=== PATIENT | female | born 1955 | race Caucasian/White ===

== ENCOUNTER 2017-10-29 20:43 | Emergency (ER) | payer MEDICAID, OTHER ==
[~2017-10-29] VITALS: Ht 162.6 cm; Wt 63.0 kg
[2017-10-29 20:46] VITALS: BP 125/85
== END 2017-10-29 23:34 | disposition home or self-care (01) ==
LOC: ER 20:47
DX: F41.1 Generalized anxiety disorder (principal); J84.10 Pulmonary fibrosis, unspecified; Z99.81 Dependence on supplemental oxygen
CPT/HCPCS: 93005; 99284

== ENCOUNTER 2019-02-01 10:12 | Inpatient (IN) | payer MEDICARE, MEDICAID ==
[~2019-02-01] VITALS: Ht 152.4 cm; Wt 64.0 kg
[~2019-02-01 10:12] MED LIST: ALBU18HF2 IH; ALBU6.7H9 INH; ASPI-1158 PO; ATOR-2 PO; CLOP75TA4 PO
[2019-02-01 10:48] LABS: BASOPHILS % 0.4 % (0.0-2.0); EOSINOPHILS % 4.6 % (0.0-5.0); HEMATOCRIT. 44.5 % (36.0-48.0); HEMOGLOBIN. 14.7 g/dL (12.0-16.0); LYMPHOCYTES % 21.7 % (20.0-50.0); MEAN CORPUSCULAR HEMOGLOBIN 30.1 pg (28.0-32.0); MEAN CORPUSCULAR VOLUME 91.2 fL (81.0-99.0); MONOCYTES % 9.5 % (2.0-8.0); NEUTROPHILS % 63.8 % (40.0-76.0); PLATELET 260 x1000/uL (130-400); RED BLOOD CELL COUNT 4.88 mill/uL (4.2-5.4); RED CELL DISTRIBUTION WIDTH 14.3 % (11.6-14.6)
[2019-02-01 10:50] LABS: CHLORIDE 108 mEq/L (98-107)
[2019-02-01 14:53] LABS: BG BASE EXCESS -0.2 mmol/L (-2.0-2.0); BG BILEVEL POS AIRWAY PRESSURE 15/5; BG CARBOXYHEMOGLOBIN 0.2 % (0.5-1.5); BG DEOXYHEMOGLOBIN 0.3 % (0.0-5.0); BG FRACTION INSPIRED OXYGEN 100; BG HCO3 ACT 24.7 mmol/L (22.0-26.0); BG METHEMOGLOBIN 0.2 % (0.0-1.5); BG OXYGEN SATURATION 99.7 % (92.0-98.5); BG OXYHEMOGLOBIN 99.3 % (94.0-97.0); BG PCO2 41.4 mmHg (35.0-45.0); BG PH 7.394 (7.350-7.450); BG PO2 519.1 mmHg (75.0-100.0); BG SAMPLE SITE RIGHT RADIAL; BG TOTAL HEMOGLOBIN 16.4 g/dL (12.0-18.0); BG VENT MODE MASK - BIPAP; BG VENT RATE 16 set
[2019-02-01] MEDS ORDERED: DOCUSATE SODIUM 100MG CAPSULE PO PRN (17:45)
[2019-02-01] MEDS ORDERED: IPRATROPIUM/ALBUTEROL 0.5-3(2.5)MG/3ML NEB NEB PRN (17:45)
[2019-02-01] MEDS ORDERED: ZOLPIDEM TARTRATE 5MG TABLET PO PRN (17:45)
[2019-02-01] MEDS ORDERED: LORAZEPAM 0.5MG TABLET PO PRN (17:45)
[2019-02-01] MEDS ORDERED: DIPHENHYDRAMINE 50MG/ML VIAL IV PRN (17:45)
[2019-02-01] MEDS ORDERED: CLONIDINE 0.1MG TABLET PO PRN (17:45)
[2019-02-01] MEDS ORDERED: MAGNESIUM/ALUMINUM HYDROXIDE/SIMETHICONE 30ML UDC PO PRN (17:45)
[2019-02-01] MEDS ORDERED: NITROGLYCERIN 0.4MG TABLET SL SL PRN (17:45)
[2019-02-01] MEDS ORDERED: GUAIFENESIN 200MG/10ML SUGAR FREE UDC PO PRN (17:45)
[2019-02-01] MEDS ORDERED: ONDANSETRON HCL 4MG/2ML INJ IV PRN (17:45)
[2019-02-01] MEDS ORDERED: ACETAMINOPHEN 325MG TABLET PO PRN (17:45)
[2019-02-01 17:55] VITALS: BP 99/77
[2019-02-01 18:00] VITALS: BP 103/60
[2019-02-01] MEDS ORDERED: TRAMADOL 50MG TABLET PO PRN (18:00)
[2019-02-01] MEDS: ASPIRIN 81MG EC TABLET PO SCH (18:35)
[2019-02-01 20:00] VITALS: BP 94/63
[2019-02-01] MEDS: LEVOFLOXACIN 500MG PREMIX 100 ML IV SCH (20:55)
[2019-02-01] MEDS: GUAIFENESIN 600MG ER TABLET PO SCH (20:56)
[2019-02-01] MEDS: FAMOTIDINE 20MG TABLET PO SCH (20:56)
[2019-02-01] MEDS: ATORVASTATIN CALCIUM 40MG TABLET PO SCH (21:15)
[2019-02-01] MEDS: ENOXAPARIN 40MG/0.4ML SYR SUBCUT SCH (21:15)
[2019-02-01 22:00] VITALS: BP 97/61
[2019-02-01] MEDS: METHYLPREDNISOLONE SOD SUCC 125 MG/2 ML VIAL IV SCH (23:02)
[2019-02-02] VITALS (12 sets, daily range): BP systolic 63–121; BP diastolic 48–81
[2019-02-02] MEDS: IPRATROPIUM/ALBUTEROL 0.5-3(2.5)MG/3ML NEB HHN SCH ×6 (00:33→20:51)
[2019-02-02 01:30] LABS: CREATINE KINASE 40 IU/L (26-192)
[2019-02-02 01:31] LABS: CREATINE KINASE MB FRACTION < 1.0 ng/mL (0.5-3.6)
[2019-02-02] MEDS: METHYLPREDNISOLONE SOD SUCC 125 MG/2 ML VIAL IV SCH ×3 (05:36→22:40)
[2019-02-02] MEDS: GUAIFENESIN 600MG ER TABLET PO SCH ×2 (09:37→22:39)
[2019-02-02] MEDS: FAMOTIDINE 20MG TABLET PO SCH ×2 (09:37→22:39)
[2019-02-02] MEDS: CLOPIDOGREL 75MG TABLET PO SCH (09:38)
[2019-02-02] MEDS: ASPIRIN 81MG EC TABLET PO SCH (09:38)
[2019-02-02 11:20] LABS: BG BASE EXCESS -3.9 mmol/L (-2.0-2.0); BG CARBOXYHEMOGLOBIN 0.6 % (0.5-1.5); BG DEOXYHEMOGLOBIN 3.4 % (0.0-5.0); BG FRACTION INSPIRED OXYGEN 36; BG HCO3 ACT 19.8 mmol/L (22.0-26.0); BG METHEMOGLOBIN 0.3 % (0.0-1.5); BG OXYGEN SATURATION 96.6 % (92.0-98.5); BG OXYHEMOGLOBIN 95.7 % (94.0-97.0); BG PCO2 32.1 mmHg (35.0-45.0); BG PH 7.407 (7.350-7.450); BG PO2 86.5 mmHg (75.0-100.0); BG SAMPLE SITE RIGHT RADIAL; BG TOTAL HEMOGLOBIN 14.3 g/dL (12.0-18.0); BG VENT MODE NASAL CANNULA
[2019-02-02 12:22] LABS: CHLORIDE 107 mEq/L (98-107)
[2019-02-02 12:31] LABS: HDL CHOLESTEROL 42 mg/dL (40-59)
[2019-02-02 12:37] LABS: CREATINE KINASE MB FRACTION < 1.0 ng/mL (0.5-3.6)
[2019-02-02 12:38] LABS: CREATINE KINASE 35 IU/L (26-192); LDL CHOLESTEROL 74 mg/dL (5-100)
[2019-02-02] MEDS ORDERED: LIDOCAINE HCL/PF 1% 2ML VIAL ONE (13:43)
[2019-02-02] MEDS: ATORVASTATIN CALCIUM 40MG TABLET PO SCH (22:39)
[2019-02-02] MEDS: LEVOFLOXACIN 500MG PREMIX 100 ML IV SCH (22:39)
[2019-02-02] MEDS: ENOXAPARIN 40MG/0.4ML SYR SUBCUT SCH (22:40)
[2019-02-03] VITALS (11 sets, daily range): BP systolic 94–127; BP diastolic 55–74
[2019-02-03] MEDS: IPRATROPIUM/ALBUTEROL 0.5-3(2.5)MG/3ML NEB HHN SCH ×7 (00:40→23:59)
[2019-02-03] MEDS: METHYLPREDNISOLONE SOD SUCC 125 MG/2 ML VIAL IV SCH ×3 (05:58→21:00)
[2019-02-03] MEDS: FAMOTIDINE 20MG TABLET PO SCH ×2 (09:30→21:00)
[2019-02-03] MEDS: GUAIFENESIN 600MG ER TABLET PO SCH ×2 (09:30→21:00)
[2019-02-03] MEDS: ASPIRIN 81MG EC TABLET PO SCH (09:31)
[2019-02-03] MEDS: CLOPIDOGREL 75MG TABLET PO SCH (09:31)
[2019-02-03 14:14] LABS: BASOPHILS % 0.1 % (0.0-2.0); HEMATOCRIT. 39.7 % (36.0-48.0); HEMOGLOBIN. 13.3 g/dL (12.0-16.0); LYMPHOCYTES % 8.2 % (20.0-50.0); MEAN CORPUSCULAR HEMOGLOBIN 30.5 pg (28.0-32.0); MEAN CORPUSCULAR VOLUME 90.8 fL (81.0-99.0); MEAN PLATELET VOLUME 8.3 fl (7.4-10.4); MONOCYTES % 5.2 % (2.0-8.0); NEUTROPHILS % 86.5 % (40.0-76.0); PLATELET 263 x1000/uL (130-400); RED BLOOD CELL COUNT 4.37 mill/uL (4.2-5.4); RED CELL DISTRIBUTION WIDTH 14.3 % (11.6-14.6)
[2019-02-03 14:25] LABS: CHLORIDE 107 mEq/L (98-107)
[2019-02-03] MEDS: ATORVASTATIN CALCIUM 40MG TABLET PO SCH (21:00)
[2019-02-03] MEDS: ENOXAPARIN 40MG/0.4ML SYR SUBCUT SCH (21:00)
[2019-02-03] MEDS: LEVOFLOXACIN 500MG PREMIX 100 ML IV SCH (21:00)
[2019-02-04] VITALS: BP 108/70
[2019-02-04 03:43] VITALS: BP 114/61
[2019-02-04] MEDS: IPRATROPIUM/ALBUTEROL 0.5-3(2.5)MG/3ML NEB HHN SCH (04:29)
[2019-02-04] MEDS: METHYLPREDNISOLONE SOD SUCC 125 MG/2 ML VIAL IV SCH (05:25)
[2019-02-04 08:00] VITALS: BP 97/58
[2019-02-04] MEDS: GUAIFENESIN 600MG ER TABLET PO SCH (09:12)
[2019-02-04] MEDS: FAMOTIDINE 20MG TABLET PO SCH (09:12)
[2019-02-04] MEDS: CLOPIDOGREL 75MG TABLET PO SCH (09:12)
[2019-02-04] MEDS: ASPIRIN 81MG EC TABLET PO SCH (09:12)
[2019-02-04 11:30] VITALS: BP 115/54
[2019-02-04] MEDS ORDERED: P20 PO (12:48)
[2019-02-04] MEDS ORDERED: LEVO500T2 PO (12:50)
[2019-02-04] MEDS ORDERED: GUAI600T26 PO (12:57)
[2019-02-04 12:59] VITALS: BP 110/78
== END 2019-02-04 14:56 | disposition home or self-care (01) | DRG 189 ==
LOC: ER 10:12 → 5EST 12:45 → ENRESERV 15:26
PROVIDERS: ADMIT Internal Medicine; ATTEND Internal Medicine
PROC: 5A09357 Assistance with Respiratory Ventilation, Less than 24 Consecutive Hours, Continuous Positive Airway Pressure (ICD-10-PCS; principal; 2019-02-01)
DX: J96.00 Acute respiratory failure, unspecified whether with hypoxia or hypercapnia (principal); J44.1 Chronic obstructive pulmonary disease with (acute) exacerbation; E78.00 Pure hypercholesterolemia, unspecified; I11.0 Hypertensive heart disease with heart failure; I25.10 Atherosclerotic heart disease of native coronary artery without angina pectoris; I27.20 Pulmonary hypertension, unspecified; I50.9 Heart failure, unspecified; Z79.02 Long term (current) use of antithrombotics/antiplatelets; Z87.891 Personal history of nicotine dependence; Z95.5 Presence of coronary angioplasty implant and graft; Z99.81 Dependence on supplemental oxygen
CPT/HCPCS: 36415; 36600; 71045; 80048; 80061; 82375; 82550; 82553; 82805; 83036; 83880; 84484; 93005; 93306; 93970; 94660; 99291; J1650; J1956; J2930; J3490; J7620

== ENCOUNTER 2019-06-10 12:07 | Emergency (ER) | payer MEDICARE, MEDICAID ==
[~2019-06-10] VITALS: Ht 162.6 cm; Wt 60.0 kg
[~2019-06-10 12:07] MED LIST changes: +ASPI-1497 PO; +CLOP75TA15 PO; +FLUT1DIS2 INH; +FLUT1DIS3 INH; +GUAI600T26 PO; +LEVO500T2 PO; +P20 PO; +P50 PO; +PRED10TA PO; +PRED10TA23 PO; +PRED5SOL2 PO; +TOPUD MT
[2019-06-10 14:24] VITALS: BP 110/62
== END 2019-06-10 14:25 | disposition home or self-care (01) ==
LOC: ER 12:07
DX: R04.0 Epistaxis (principal); E78.00 Pure hypercholesterolemia, unspecified; J84.10 Pulmonary fibrosis, unspecified; Z99.81 Dependence on supplemental oxygen
CPT/HCPCS: 99283

== ENCOUNTER 2019-07-15 21:02 | Inpatient (IN) | payer MEDICARE, MEDICAID ==
[~2019-07-15] VITALS: Ht 160 cm; Wt 63.1 kg
[2019-07-15] MEDS ORDERED: METHYLPREDNISOLONE SOD SUCC 125 MG/2 ML VIAL IV STA (21:48)
[2019-07-15] MEDS ORDERED: IPRATROPIUM BROMIDE (0.02%) 0.5MG/2.5ML NEB HHN STA (21:48)
[2019-07-15] MEDS ORDERED: ALBUTEROL (0.083%) 2.5MG/3ML NEB HHN STA (21:48)
[2019-07-15] MEDS ORDERED: MAGNESIUM 2 G PREMIX 50 ML IV ONE (22:00)
[2019-07-15 22:44] LABS: BASOPHILS % 0.3 % (0.0-2.0); EOSINOPHILS % 7.5 % (0.0-5.0); HEMATOCRIT. 42.1 % (36.0-48.0); LYMPHOCYTES % 28.2 % (20.0-50.0); MEAN CORPUSCULAR HEMOGLOBIN 30.7 pg (28.0-32.0); MEAN CORPUSCULAR VOLUME 92.2 fL (81.0-99.0); MEAN PLATELET VOLUME 8.4 fl (7.4-10.4); PLATELET 272 x1000/uL (130-400); RED BLOOD CELL COUNT 4.56 mill/uL (4.2-5.4); RED CELL DISTRIBUTION WIDTH 13.5 % (11.6-14.6)
[2019-07-15 22:50] LABS: CHLORIDE 108 mEq/L (98-107)
[2019-07-16] VITALS (7 sets, daily range): BP systolic 95–126; BP diastolic 57–77
[2019-07-16] MEDS ORDERED: SUCCINYLCHOLINE CHLORIDE 200MG/10ML IV ONE (02:00)
[2019-07-16] MEDS ORDERED: PROPOFOL 10MG/ML 100ML 100 ML IV ONE (02:00)
[2019-07-16] MEDS ORDERED: ETOMIDATE 2MG/ML 10ML VIAL IV ONE (02:00)
[2019-07-16] MEDS ORDERED: D-ME473S8 MT (03:21)
[2019-07-16] MEDS ORDERED: IPRATROPIUM/ALBUTEROL 0.5-3(2.5)MG/3ML NEB HHN PRN (04:30)
[2019-07-16] MEDS: HYDROCODONE/ACETAMINOPHEN 10/325MG TABLET PO PRN ×3 (05:01→22:54)
[2019-07-16 08:50] LABS: BASOPHILS % 0.2 % (0.0-2.0); HEMATOCRIT. 39.4 % (36.0-48.0); HEMOGLOBIN. 13.3 g/dL (12.0-16.0); LYMPHOCYTES % 16.5 % (20.0-50.0); MEAN CORPUSCULAR HEMOGLOBIN 30.8 pg (28.0-32.0); MONOCYTES % 1.2 % (2.0-8.0); NEUTROPHILS % 82.1 % (40.0-76.0); PLATELET 256 x1000/uL (130-400); RED BLOOD CELL COUNT 4.32 mill/uL (4.2-5.4); RED CELL DISTRIBUTION WIDTH 13.1 % (11.6-14.6)
[2019-07-16 08:59] LABS: CHLORIDE 109 mEq/L (98-107)
[2019-07-16] MEDS: ENOXAPARIN 40MG/0.4ML SYR SUBCUT SCH (11:17)
[2019-07-16] MEDS ORDERED: ONDANSETRON HCL 4MG/2ML INJ IV NR (13:33)
[2019-07-16] MEDS: METHYLPREDNISOLONE SOD SUCC 125 MG/2 ML VIAL IV SCH ×2 (13:48→21:32)
[2019-07-16] MEDS: IPRATROPIUM/ALBUTEROL 0.5-3(2.5)MG/3ML NEB HHN SCH ×2 (15:20→21:02)
[2019-07-16] MEDS: GUAIFENESIN 600MG ER TABLET PO SCH (21:31)
[2019-07-17] VITALS: BP 93/51
[2019-07-17] MEDS: IPRATROPIUM/ALBUTEROL 0.5-3(2.5)MG/3ML NEB HHN SCH ×6 (00:57→22:02)
[2019-07-17 04:00] VITALS: BP 102/58
[2019-07-17] MEDS: METHYLPREDNISOLONE SOD SUCC 125 MG/2 ML VIAL IV SCH (05:05)
[2019-07-17 07:31] LABS: BASOPHILS % 0.1 % (0.0-2.0); HEMATOCRIT. 36.5 % (36.0-48.0); HEMOGLOBIN. 12.3 g/dL (12.0-16.0); LYMPHOCYTES % 11.8 % (20.0-50.0); MEAN CORPUSCULAR HEMOGLOBIN 30.6 pg (28.0-32.0); MEAN PLATELET VOLUME 8.2 fl (7.4-10.4); MONOCYTES % 3.3 % (2.0-8.0); NEUTROPHILS % 84.8 % (40.0-76.0); PLATELET 259 x1000/uL (130-400); RED BLOOD CELL COUNT 4.01 mill/uL (4.2-5.4); RED CELL DISTRIBUTION WIDTH 13.2 % (11.6-14.6)
[2019-07-17 07:43] LABS: CHLORIDE 105 mEq/L (98-107)
[2019-07-17 08:00] VITALS: BP 101/55
[2019-07-17] MEDS: GUAIFENESIN 600MG ER TABLET PO SCH ×2 (08:39→21:42)
[2019-07-17] MEDS: ENOXAPARIN 40MG/0.4ML SYR SUBCUT SCH (10:48)
[2019-07-17 12:00] VITALS: BP 116/71
[2019-07-17] MEDS: METHYLPREDNISOLONE SOD SUCC 40 MG/ML VIAL IV SCH ×2 (13:29→21:42)
[2019-07-17 16:00] VITALS: BP 107/62
[2019-07-17 20:00] VITALS: BP 106/58
[2019-07-18] VITALS: BP 102/61
[2019-07-18] MEDS: IPRATROPIUM/ALBUTEROL 0.5-3(2.5)MG/3ML NEB HHN SCH ×4 (00:46→12:37)
[2019-07-18 04:00] VITALS: BP 102/63
[2019-07-18 06:26] LABS: HEMATOCRIT. 38.1 % (36.0-48.0); HEMOGLOBIN. 12.6 g/dL (12.0-16.0); LYMPHOCYTES % 12.4 % (20.0-50.0); MEAN CORPUSCULAR HEMOGLOBIN 30.1 pg (28.0-32.0); MEAN PLATELET VOLUME 7.9 fl (7.4-10.4); NEUTROPHILS % 81.6 % (40.0-76.0); PLATELET 249 x1000/uL (130-400); RED BLOOD CELL COUNT 4.19 mill/uL (4.2-5.4); RED CELL DISTRIBUTION WIDTH 13.6 % (11.6-14.6)
[2019-07-18] MEDS: METHYLPREDNISOLONE SOD SUCC 40 MG/ML VIAL IV SCH (06:40)
[2019-07-18 06:45] LABS: CHLORIDE 105 mEq/L (98-107)
[2019-07-18 08:00] VITALS: BP 110/67
[2019-07-18] MEDS: GUAIFENESIN 600MG ER TABLET PO SCH (08:06)
[2019-07-18] MEDS: ENOXAPARIN 40MG/0.4ML SYR SUBCUT SCH (10:49)
[2019-07-18 12:00] VITALS: BP 119/58
[2019-07-18 12:36] VITALS: BP 119/58
[2019-07-19] MEDS ORDERED: METHYLPREDNISOLONE SOD SUCC 40 MG/ML VIAL IV SCH (09:00)
== END 2019-07-18 13:44 | disposition home or self-care (01) | DRG 196 ==
LOC: ER 21:02 → 5WST 23:34 → EDBEDREQTM 23:38 → EDBEDREQ 23:38 → ENRESERV 07-16 00:09
PROVIDERS: ADMIT Internal Medicine; ATTEND Internal Medicine
DX: J84.10 Pulmonary fibrosis, unspecified (principal); J96.21 Acute and chronic respiratory failure with hypoxia; I25.10 Atherosclerotic heart disease of native coronary artery without angina pectoris; J47.9 Bronchiectasis, uncomplicated; E78.5 Hyperlipidemia, unspecified; I10 Essential (primary) hypertension; T38.0X5A Adverse effect of glucocorticoids and synthetic analogues, initial encounter; Z79.899 Other long term (current) drug therapy; Z79.2 Long term (current) use of antibiotics; Z79.82 Long term (current) use of aspirin; Z95.5 Presence of coronary angioplasty implant and graft; Z87.891 Personal history of nicotine dependence; Z79.1 Long term (current) use of non-steroidal anti-inflammatories (NSAID); Z99.81 Dependence on supplemental oxygen; Y92.89 Other specified places as the place of occurrence of the external cause
CPT/HCPCS: 36415; 71045; 80048; 80053; 83605; 83880; 84484; 85025; 87804; 93005; 93970; 94640; 99285; J1650; J2405; J2920; J2930; J3475

== ENCOUNTER 2019-08-28 19:33 | Inpatient (IN) | payer MEDICARE, MEDICAID ==
[~2019-08-28] VITALS: Ht 165.1 cm; Wt 59.2 kg
[~2019-08-28 19:33] MED LIST changes: -ASPI-1497 PO; -CLOP75TA15 PO; -CLOP75TA4 PO; +D-ME473S8 MT; -GUAI600T26 PO; -LEVO500T2 PO; -P20 PO; -P50 PO; -PRED10TA PO; -PRED10TA23 PO; -PRED5SOL2 PO
[2019-08-28] MEDS ORDERED: ASPIRIN 325MG TABLET PO ONE (20:15)
[2019-08-28 21:11] LABS: BASOPHILS % 0.6 % (0.0-2.0); EOSINOPHILS % 6.8 % (0.0-5.0); HEMATOCRIT. 42.2 % (36.0-48.0); LYMPHOCYTES % 31.1 % (20.0-50.0); MEAN CORPUSCULAR HEMOGLOBIN 29.8 pg (28.0-32.0); MEAN CORPUSCULAR VOLUME 89.6 fL (81.0-99.0); MONOCYTES % 8.4 % (2.0-8.0); NEUTROPHILS % 53.1 % (40.0-76.0); PLATELET 318 x1000/uL (130-400); RED BLOOD CELL COUNT 4.71 mill/uL (4.2-5.4); RED CELL DISTRIBUTION WIDTH 14.2 % (11.6-14.6)
[2019-08-28 21:14] LABS: CHLORIDE 104 mEq/L (98-107)
[2019-08-29] VITALS (7 sets, daily range): BP systolic 89–123; BP diastolic 59–70
[2019-08-29] MEDS ORDERED: ACETAMINOPHEN 325MG TABLET PO PRN (01:30)
[2019-08-29] MEDS ORDERED: IPRATROPIUM/ALBUTEROL 0.5-3(2.5)MG/3ML NEB HHN SCH (04:00)
[2019-08-29] MEDS ORDERED: PIPERACILLIN/TAZOBACTAM 3.375 G/VIAL IV SCH (06:00)
[2019-08-29] MEDS: PIPERACILLIN/TAZOBACTAM 3.375 G in DEXT 5% WATER 100 ML IV SCH ×3 (06:20→21:42)
[2019-08-29] MEDS: ENOXAPARIN 40MG/0.4ML SYR SUBCUT SCH (08:24)
[2019-08-29] MEDS: ALBUTEROL 6.7GM HFA INHALER ORI SCH ×4 (08:57→22:00)
[2019-08-29] MEDS ORDERED: ASPIRIN 81MG EC TABLET PO SCH (09:00)
[2019-08-29] MEDS ORDERED: BENZONATATE 100MG CAPSULE PO PRN (09:15)
[2019-08-29] MEDS: AZITHROMYCIN 500 MG TABLET PO SCH (10:40)
[2019-08-29] MEDS: ZINC SULFATE 220 MG ( 50 ) CAPSULE PO SCH (10:40)
[2019-08-29] MEDS: ASCORBIC ACID 500 MG TABLET PO SCH ×2 (10:40→21:42)
[2019-08-29] MEDS: GUAIFENESIN 600MG ER TABLET PO SCH ×2 (10:41→21:42)
[2019-08-29] MEDS: METHYLPREDNISOLONE SOD SUCC 40 MG/ML VIAL IV SCH ×2 (14:20→21:42)
[2019-08-29] MEDS ORDERED: SODIUM CHLORIDE 0.9% 1,000 ML IV NR (17:30)
[2019-08-29] MEDS ORDERED: ATORVASTATIN CALCIUM 40MG TABLET PO SCH (21:00)
[2019-08-30] VITALS (7 sets, daily range): BP systolic 83–137; BP diastolic 53–75
[2019-08-30] MEDS: ALBUTEROL 6.7GM HFA INHALER ORI SCH ×4 (02:15→12:00)
[2019-08-30] MEDS: PIPERACILLIN/TAZOBACTAM 3.375 G in DEXT 5% WATER 100 ML IV SCH ×2 (05:22→14:00)
[2019-08-30] MEDS: METHYLPREDNISOLONE SOD SUCC 40 MG/ML VIAL IV SCH (09:00)
[2019-08-30] MEDS: ENOXAPARIN 40MG/0.4ML SYR SUBCUT SCH (09:00)
[2019-08-30] MEDS: AZITHROMYCIN 500 MG TABLET PO SCH (09:00)
[2019-08-30] MEDS: GUAIFENESIN 600MG ER TABLET PO SCH (09:00)
[2019-08-30] MEDS: ASCORBIC ACID 500 MG TABLET PO SCH (09:00)
[2019-08-30] MEDS: ZINC SULFATE 220 MG ( 50 ) CAPSULE PO SCH (09:00)
[2019-08-30] MEDS ORDERED: GUAI600T26 MT (10:52)
[2019-08-30] MEDS ORDERED: FLUT1DIS3 INH (10:52)
[2019-08-30] MEDS ORDERED: IPRATROPIUM/ALBUTEROL 0.5-3(2.5)MG/3ML NEB HHN PRN (13:30)
== END 2019-08-30 14:53 | disposition home or self-care (01) | DRG 189 ==
LOC: ER 19:33 → 7WST 21:51 → EDBEDREQ 21:58 → ENRESERV 22:12 → CANRESERV 22:12 → ENRESERV 23:03 → 5WST 08-30 01:41
PROVIDERS: ADMIT Internal Medicine; ATTEND Internal Medicine
DX: J96.20 Acute and chronic respiratory failure, unspecified whether with hypoxia or hypercapnia (principal); J47.0 Bronchiectasis with acute lower respiratory infection; J84.10 Pulmonary fibrosis, unspecified; I25.10 Atherosclerotic heart disease of native coronary artery without angina pectoris; Z20.828 Contact with and (suspected) exposure to other viral communicable diseases; E78.5 Hyperlipidemia, unspecified; J20.9 Acute bronchitis, unspecified; Z95.5 Presence of coronary angioplasty implant and graft; Z99.81 Dependence on supplemental oxygen; Z79.82 Long term (current) use of aspirin; Z79.899 Other long term (current) drug therapy
CPT/HCPCS: 36415; 71045; 80053; 83880; 84484; 85025; 85379; 93005; 97162; 99285; J1650; J2543; J2920; J7060; U0003

== ENCOUNTER 2019-10-31 19:31 | Inpatient (IN) | payer MEDICARE, MEDICAID ==
[~2019-10-31] VITALS: Ht 160 cm; Wt 58.1 kg
[~2019-10-31 19:31] MED LIST changes: -D-ME473S8 MT; -FLUT1DIS2 INH; +GUAI600T26 MT; +MED4 MT; -TOPUD MT
[2019-10-31] MEDS ORDERED: ASPIRIN 81MG TABLET PO ONE (20:00)
[2019-10-31] MEDS ORDERED: ALBUTEROL 6.7GM HFA INHALER ORI ONE ×3 (20:00)
[2019-10-31] MEDS ORDERED: METHYLPREDNISOLONE SOD SUCC 125 MG/2 ML VIAL IV ONE (20:00)
[2019-10-31] MEDS: NITROGLYCERIN 0.4MG TABLET SL SL PRN (20:26)
[2019-10-31 20:51] LABS: BASOPHILS % 0.5 % (0.0-2.0); EOSINOPHILS % 5.5 % (0.0-5.0); HEMOGLOBIN. 14.5 g/dL (12.0-16.0); LYMPHOCYTES % 30.1 % (20.0-50.0); MEAN CORPUSCULAR HEMOGLOBIN 30.1 pg (28.0-32.0); MEAN CORPUSCULAR VOLUME 89.7 fL (81.0-99.0); MONOCYTES % 8.3 % (2.0-8.0); NEUTROPHILS % 55.6 % (40.0-76.0); PLATELET 375 x1000/uL (130-400); RED CELL DISTRIBUTION WIDTH 15.3 % (11.6-14.6)
[2019-10-31 20:58] LABS: CHLORIDE 106 mEq/L (98-107)
[2019-10-31] MEDS ORDERED: MORPHINE SULFATE 4 MG/ML CPJ (NOT FOR IM USE) IV STA (21:02)
[2019-10-31] MEDS ORDERED: ONDANSETRON HCL 4MG/2ML INJ IV STA (21:02)
[2019-10-31 21:11] LABS: PROTHROMBIN TIME 10.9 sec (9.6-11.0)
[2019-10-31] MEDS ORDERED: VANCOMYCIN 1 G PREMIX 200 ML IV ONE (21:15)
[2019-10-31] MEDS ORDERED: PIPERACILLIN/TAZ 3.375G PREMIX 50 ML IV ONE (21:15)
[2019-11-01] MEDS ORDERED: GUAIFENESIN 200MG/10ML SUGAR FREE UDC PO PRN (08:15)
[2019-11-01] MEDS: NITROGLYCERIN 0.4MG TABLET SL SL PRN (08:27)
[2019-11-01] MEDS ORDERED: IPRATROPIUM/ALBUTEROL 0.5-3(2.5)MG/3ML NEB HHN PRN (08:30)
[2019-11-01] MEDS ORDERED: ACETAMINOPHEN 325MG TABLET PO PRN (08:30)
[2019-11-01] MEDS ORDERED: ONDANSETRON HCL 4MG/2ML INJ IV PRN (08:30)
[2019-11-01 09:00] VITALS: BP 52/29
[2019-11-01] MEDS ORDERED: SODIUM CHLORIDE 0.9% 1000ML BAG (SEPSIS BOLUS) IV ONE (09:45)
[2019-11-01] MEDS: MIDODRINE HCL 5MG TABLET PO SCH ×3 (10:13→17:24)
[2019-11-01] MEDS: ASPIRIN 81MG TABLET PO SCH (10:13)
[2019-11-01] MEDS ORDERED: METHYLPREDNISOLONE SOD SUCC 40 MG/ML VIAL IV SCH (11:00)
[2019-11-01 12:00] VITALS: BP 104/70
[2019-11-01 13:54] LABS: BG BASE EXCESS -3.9 mmol/L (-2.0-2.0); BG CARBOXYHEMOGLOBIN 0.2 % (0.5-1.5); BG DEOXYHEMOGLOBIN 0.4 % (0.0-5.0); BG FRACTION INSPIRED OXYGEN 99.8; BG HCO3 ACT 21.2 mmol/L (22.0-26.0); BG METHEMOGLOBIN 0.4 % (0.0-1.5); BG OXYGEN SATURATION 99.6 % (92.0-98.5); BG PCO2 38.8 mmHg (35.0-45.0); BG PH 7.356 (7.350-7.450); BG PO2 295.8 mmHg (75.0-100.0); BG SAMPLE SITE RIGHT BRACHIAL; BG TOTAL HEMOGLOBIN 13.6 g/dL (12.0-18.0); BG VENT MODE MASK - NRB
[2019-11-01] MEDS: ENOXAPARIN 40MG/0.4ML SYR SUBCUT SCH (14:38)
[2019-11-01 16:00] VITALS: BP 100/53
[2019-11-01] MEDS: ALBUTEROL 6.7GM HFA INHALER ORI SCH (18:00)
[2019-11-01] MEDS: METHYLPREDNISOLONE SOD SUCC 40 MG/ML VIAL IV SCH (19:33)
[2019-11-01 20:00] VITALS: BP 92/43
[2019-11-02] VITALS (8 sets, daily range): BP systolic 80–126; BP diastolic 44–57
[2019-11-02] MEDS: ALBUTEROL 6.7GM HFA INHALER ORI SCH ×3 (02:15→13:00)
[2019-11-02] MEDS: METHYLPREDNISOLONE SOD SUCC 40 MG/ML VIAL IV SCH ×3 (02:53→17:49)
[2019-11-02] MEDS ORDERED: SODIUM CHLORIDE 0.9% 1000ML BAG (SEPSIS BOLUS) IV ONE (08:15)
[2019-11-02] MEDS: MIDODRINE HCL 5MG TABLET PO SCH ×3 (08:23→17:51)
[2019-11-02] MEDS: ASPIRIN 81MG TABLET PO SCH (08:23)
[2019-11-02] MEDS: ENOXAPARIN 40MG/0.4ML SYR SUBCUT SCH (13:16)
[2019-11-02 13:27] LABS: BASOPHILS % 0.2 % (0.0-2.0); HEMOGLOBIN. 12.5 g/dL (12.0-16.0); LYMPHOCYTES % 12.1 % (20.0-50.0); MEAN CORPUSCULAR HEMOGLOBIN 29.7 pg (28.0-32.0); MEAN CORPUSCULAR VOLUME 90.4 fL (81.0-99.0); MEAN PLATELET VOLUME 7.7 fl (7.4-10.4); MONOCYTES % 3.1 % (2.0-8.0); NEUTROPHILS % 84.6 % (40.0-76.0); PLATELET 305 x1000/uL (130-400); RED BLOOD CELL COUNT 4.21 mill/uL (4.2-5.4); RED CELL DISTRIBUTION WIDTH 15.5 % (11.6-14.6)
[2019-11-02 13:45] LABS: CHLORIDE 113 mEq/L (98-107)
[2019-11-02] MEDS: IPRATROPIUM/ALBUTEROL 0.5-3(2.5)MG/3ML NEB HHN SCH (19:45)
[2019-11-03] MEDS: METHYLPREDNISOLONE SOD SUCC 40 MG/ML VIAL IV SCH ×3 (02:32→17:08)
[2019-11-03] MEDS: IPRATROPIUM/ALBUTEROL 0.5-3(2.5)MG/3ML NEB HHN SCH ×4 (02:56→21:57)
[2019-11-03 04:42] VITALS: BP 90/37
[2019-11-03 08:00] VITALS: BP 98/52
[2019-11-03] MEDS ORDERED: REGADENOSON 0.4 MG/5 ML IV ONE (08:30)
[2019-11-03] MEDS: ASPIRIN 81MG TABLET PO SCH (09:06)
[2019-11-03] MEDS: MIDODRINE HCL 5MG TABLET PO SCH ×3 (09:06→17:00)
[2019-11-03 12:00] VITALS: BP 125/53
[2019-11-03] MEDS: ENOXAPARIN 40MG/0.4ML SYR SUBCUT SCH (12:12)
[2019-11-03 16:00] VITALS: BP 128/61
[2019-11-03 20:46] VITALS: BP 94/48
[2019-11-04 00:40] VITALS: BP 104/43
[2019-11-04] MEDS: IPRATROPIUM/ALBUTEROL 0.5-3(2.5)MG/3ML NEB HHN SCH ×3 (03:20→15:20)
[2019-11-04 04:00] VITALS: BP 92/39
[2019-11-04 08:01] VITALS: BP 91/61
[2019-11-04] MEDS: ASPIRIN 81MG TABLET PO SCH (09:31)
[2019-11-04] MEDS: MIDODRINE HCL 5MG TABLET PO SCH ×3 (09:31→17:11)
[2019-11-04] MEDS: METHYLPREDNISOLONE SOD SUCC 40 MG/ML VIAL IV SCH ×2 (09:35→17:11)
[2019-11-04 12:27] VITALS: BP_SYST 91; BP_SYST 93; BP_DIAS 53; BP_DIAS 61
[2019-11-04] MEDS: ENOXAPARIN 40MG/0.4ML SYR SUBCUT SCH (12:50)
[2019-11-04] MEDS ORDERED: P20 MT (14:39)
[2019-11-04] MEDS ORDERED: MIDO10TA MT (14:39)
[2019-11-04 16:31] VITALS: BP 145/70
[2019-11-04 16:51] VITALS: BP 145/70
[2019-11-04 16:53] LABS: HEMOGLOBIN. 12.9 g/dL (12.0-16.0); LYMPHOCYTES % 13.7 % (20.0-50.0); MEAN CORPUSCULAR HEMOGLOBIN 29.8 pg (28.0-32.0); MEAN CORPUSCULAR VOLUME 89.7 fL (81.0-99.0); MONOCYTES % 7.4 % (2.0-8.0); NEUTROPHILS % 78.9 % (40.0-76.0); PLATELET 344 x1000/uL (130-400); RED BLOOD CELL COUNT 4.34 mill/uL (4.2-5.4); RED CELL DISTRIBUTION WIDTH 15.8 % (11.6-14.6)
== END 2019-11-04 18:10 | disposition home or self-care (01) | DRG 189 ==
LOC: ER 19:46 → 7WST 21:47 → ENRESERV 11-01 07:26 → 6WST 11-02 10:25
PROVIDERS: ADMIT Internal Medicine; ATTEND Internal Medicine
DX: J96.20 Acute and chronic respiratory failure, unspecified whether with hypoxia or hypercapnia (principal); J44.1 Chronic obstructive pulmonary disease with (acute) exacerbation; R57.9 Shock, unspecified; E46 Unspecified protein-calorie malnutrition; E84.9 Cystic fibrosis, unspecified; Z94.2 Lung transplant status; Z20.828 Contact with and (suspected) exposure to other viral communicable diseases; R00.1 Bradycardia, unspecified; J84.10 Pulmonary fibrosis, unspecified; E78.5 Hyperlipidemia, unspecified; I25.10 Atherosclerotic heart disease of native coronary artery without angina pectoris; Z95.5 Presence of coronary angioplasty implant and graft; Z87.891 Personal history of nicotine dependence; Z99.81 Dependence on supplemental oxygen; Z68.22 Body mass index [BMI] 22.0-22.9, adult; Z79.82 Long term (current) use of aspirin; Z79.51 Long term (current) use of inhaled steroids; Z79.899 Other long term (current) drug therapy
CPT/HCPCS: 36415; 36600; 71045; 80048; 80053; 82375; 82805; 83605; 83880; 84145; 84484; 85025; 93005; 93306; 94640; 99285; J1650; J2270; J2405; J2543; J2920; J2930; J3370; U0003-CS

== ENCOUNTER 2019-12-05 12:34 | Inpatient (IN) | payer MEDICARE, MEDICAID ==
[~2019-12-05] VITALS: Ht 165.1 cm; Wt 60.8 kg
[~2019-12-05 12:34] MED LIST changes: -MED4 MT; +MIDO10TA MT; +P20 MT
[2019-12-05] MEDS ORDERED: METHYLPREDNISOLONE SOD SUCC 125 MG/2 ML VIAL IV STA (12:47)
[2019-12-05] MEDS ORDERED: LEVOFLOXACIN 750MG PREMIX 150 ML IV STA (12:50)
[2019-12-05] MEDS ORDERED: IPRATROPIUM BROMIDE (0.02%) 0.5MG/2.5ML NEB HHN STA (12:50)
[2019-12-05] MEDS ORDERED: MAGNESIUM 2 G PREMIX 50 ML IV ONE (13:00)
[2019-12-05] MEDS ORDERED: AZITHROMYCIN 500 MG in DEXT 5% WATER 250 ML IV ONE (13:00)
[2019-12-05] MEDS: ALBUTEROL (0.083%) 2.5MG/3ML NEB HHN SCH ×3 (13:21→14:00)
[2019-12-05 13:22] LABS: BASOPHILS % 1.1 % (0.0-2.0); EOSINOPHILS % 4.6 % (0.0-5.0); HEMATOCRIT. 43.9 % (36.0-48.0); HEMOGLOBIN. 14.9 g/dL (12.0-16.0); LYMPHOCYTES % 23.3 % (20.0-50.0); MEAN CORPUSCULAR VOLUME 91.3 fL (81.0-99.0); MEAN PLATELET VOLUME 7.8 fl (7.4-10.4); MONOCYTES % 8.3 % (2.0-8.0); NEUTROPHILS % 62.7 % (40.0-76.0); PLATELET 371 x1000/uL (130-400); RED CELL DISTRIBUTION WIDTH 16.1 % (11.6-14.6)
[2019-12-05 13:31] LABS: CHLORIDE 106 mEq/L (98-107)
[2019-12-05] MEDS ORDERED: ONDANSETRON HCL 4MG/2ML INJ IV PRN (19:15)
[2019-12-05] MEDS ORDERED: ACETAMINOPHEN 325MG TABLET PO PRN (19:15)
[2019-12-05] MEDS: ALBUTEROL 6.7GM HFA INHALER ORI SCH (20:00)
[2019-12-05] MEDS: METHYLPREDNISOLONE SOD SUCC 40 MG/ML VIAL IV SCH (20:45)
[2019-12-05 21:20] VITALS: BP 110/68
[2019-12-05 22:42] VITALS: BP 106/72
[2019-12-05] MEDS: ENOXAPARIN 40MG/0.4ML SYR SUBCUT SCH (22:57)
[2019-12-06 00:05] VITALS: BP 121/67
[2019-12-06 04:00] VITALS: BP 120/66
[2019-12-06] MEDS: ALBUTEROL 6.7GM HFA INHALER ORI SCH ×3 (04:00→08:00)
[2019-12-06] MEDS: METHYLPREDNISOLONE SOD SUCC 40 MG/ML VIAL IV SCH ×3 (04:08→20:51)
[2019-12-06 08:00] VITALS: BP 116/59
[2019-12-06] MEDS: BENZONATATE 100MG CAPSULE PO PRN ×2 (11:30→20:51)
[2019-12-06 16:00] VITALS: BP 117/63
[2019-12-06] MEDS: IPRATROPIUM/ALBUTEROL 0.5-3(2.5)MG/3ML NEB HHN SCH ×2 (16:49→20:22)
[2019-12-06 20:00] VITALS: BP 105/68
[2019-12-06] MEDS: ENOXAPARIN 40MG/0.4ML SYR SUBCUT SCH (20:51)
[2019-12-06] MEDS ORDERED: cholesterol med PO (20:56)
[2019-12-06] MEDS ORDERED: AZIT250T12 PO (20:59)
[2019-12-06] MEDS ORDERED: IPRATROPIUM/ALBUTEROL 0.5-3(2.5)MG/3ML NEB HHN PRN (21:45)
[2019-12-06] MEDS ORDERED: AZITHROMYCIN 250 MG TABLET PO SCH (23:00)
[2019-12-06] MEDS: MIDODRINE HCL 5MG TABLET PO SCH (23:38)
[2019-12-07] VITALS: BP 119/83
[2019-12-07] MEDS: IPRATROPIUM/ALBUTEROL 0.5-3(2.5)MG/3ML NEB HHN SCH ×5 (00:44→15:51)
[2019-12-07 04:00] VITALS: BP 112/69
[2019-12-07] MEDS: BENZONATATE 100MG CAPSULE PO PRN (05:11)
[2019-12-07] MEDS: METHYLPREDNISOLONE SOD SUCC 40 MG/ML VIAL IV SCH ×2 (05:11→12:59)
[2019-12-07 08:00] VITALS: BP 126/70
[2019-12-07] MEDS: MIDODRINE HCL 5MG TABLET PO SCH ×3 (08:47→17:47)
[2019-12-07] MEDS ORDERED: AZITHROMYCIN 250 MG TABLET PO SCH (09:00)
[2019-12-07 12:00] VITALS: BP 121/76
[2019-12-07 16:00] VITALS: BP 116/67
[2019-12-07 18:04] VITALS: BP 116/67
== END 2019-12-07 18:50 | disposition short-term general hospital (02) | DRG 189 ==
LOC: ER 12:34 → EDBEDREQTM 14:55 → EDBEDREQSVC 14:55 → 7WST 18:00 → EDBEDREQ 18:02 → EDBEDREQTM 18:02 → ENRESERV 19:42 → 5WST 12-06 10:28
PROVIDERS: ADMIT Internal Medicine; ATTEND Internal Medicine
DX: J96.21 Acute and chronic respiratory failure with hypoxia (principal); J84.10 Pulmonary fibrosis, unspecified; I25.10 Atherosclerotic heart disease of native coronary artery without angina pectoris; E78.5 Hyperlipidemia, unspecified; D72.828 Other elevated white blood cell count; I50.9 Heart failure, unspecified; T38.0X5A Adverse effect of glucocorticoids and synthetic analogues, initial encounter; J44.9 Chronic obstructive pulmonary disease, unspecified; D72.829 Elevated white blood cell count, unspecified; Z20.828 Contact with and (suspected) exposure to other viral communicable diseases; Z76.82 Awaiting organ transplant status; Z79.899 Other long term (current) drug therapy; Z95.5 Presence of coronary angioplasty implant and graft; Z79.52 Long term (current) use of systemic steroids; Y92.89 Other specified places as the place of occurrence of the external cause
CPT/HCPCS: 36415; 71045; 80053; 83880; 84145; 84484; 85025; 85379; 87635; 93005; 94640; 96365; 99285; J0456; J1650; J1956; J2920; J2930; J3475; J7060

== ENCOUNTER 2021-03-23 10:24 | Emergency (ER) | payer MEDICARE, MEDICAID ==
[~2021-03-23] VITALS: Ht 160 cm; Wt 79.0 kg
[~2021-03-23 10:24] MED LIST changes: -ASPI-1158 PO; +ASPI-1406 PO; +AZIT250T12 PO; +cholesterol med PO
[2021-03-23 11:41] LABS: HEMATOCRIT. 37.6 % (36.0-48.0); MEAN CORPUSCULAR VOLUME 93.8 fL (81.0-99.0); MEAN PLATELET VOLUME 7.5 fl (7.4-10.4); PLATELET 341 x1000/uL (130-400); RED BLOOD CELL COUNT 4.01 mill/uL (4.2-5.4); RED CELL DISTRIBUTION WIDTH 23.1 % (11.6-14.6)
[2021-03-23 11:49] LABS: CHLORIDE 106 mEq/L (98-107)
[2021-03-23 12:31] LABS: PLATELET ESTIMATE NORMAL
[2021-03-23] MEDS: CEFEPIME 2,000 MG in DEXT 5% WATER 100 ML IV SCH (12:45)
[2021-03-23] MEDS ORDERED: VANCOMYCIN 1 G PREMIX 200 ML IV ONE (12:45)
[2021-03-23] MEDS ORDERED: IOHEXOL-350 100 ML BOTTLE ONE (13:26)
[2021-03-24] MEDS: CEFEPIME 2,000 MG in DEXT 5% WATER 100 ML IV SCH (00:45)
[2021-03-24 14:38] VITALS: BP 137/71
== END 2021-03-24 14:59 | disposition short-term general hospital (02) ==
LOC: ER 10:24
DX: J18.9 Pneumonia, unspecified organism (principal); G93.40 Encephalopathy, unspecified; R10.11 Right upper quadrant pain; I11.0 Hypertensive heart disease with heart failure; I50.9 Heart failure, unspecified; Z78.1 Physical restraint status; Z94.2 Lung transplant status; Z86.16 Personal history of COVID-19; Z20.822 Contact with and (suspected) exposure to COVID-19
CPT/HCPCS: 36415; 71045; 71275; 76705; 80053; 82248; 83690; 83880; 84484; 85025; 85379; 87040; 87426; 87804; 96365; 96366; 96368; 99285; J0692; J3370; J7060; Q9967; 80076